=== PATIENT | male | born 1995 | race Caucasian/White ===

== ENCOUNTER 2017-05-27 18:14 | Emergency (ER) | payer OTHER ==
[~2017-05-27] VITALS: Ht 170.2 cm; Wt 80.0 kg
[2017-05-27] MEDS ORDERED: ALBU17IN INH (18:26)
[2017-05-27] MEDS ORDERED: HYDR50TA70 PO (21:49)
[2017-05-27 22:01] VITALS: BP 128/79
== END 2017-05-27 22:03 | disposition home or self-care (01) ==
LOC: M ED 18:14
DX: F41.9 Anxiety disorder, unspecified (principal); F17.210 Nicotine dependence, cigarettes, uncomplicated

== ENCOUNTER 2017-11-09 23:50 | Emergency (ER) | payer OTHER ==
[2017-11-10] MEDS: IBUPROFEN 600 MG TAB PO (00:55)
[2017-11-10] MEDS: METHOCARBAMOL 500 MG TAB PO (00:55)
== END 2017-11-10 01:44 | disposition home or self-care (01) ==
LOC: M ED 23:50
DX: M54.41 Lumbago with sciatica, right side (principal); M54.42 Lumbago with sciatica, left side; G89.29 Other chronic pain; J45.909 Unspecified asthma, uncomplicated; F17.210 Nicotine dependence, cigarettes, uncomplicated; Z79.899 Other long term (current) drug therapy
CPT/HCPCS: 99283

== ENCOUNTER 2018-01-07 16:55 | Emergency (ER) | payer OTHER ==
[2018-01-07] MEDS: LIDOCAINE 2% MDV 20 ML VIAL SC (18:00)
[2018-01-07] MEDS: ONDANSETRON 4 MG ORAL DISINTEGRATING TAB (S0181) PO (18:42)
== END 2018-01-07 19:09 | disposition home or self-care (01) ==
LOC: M ED 16:55
DX: S69.91XA Unspecified injury of right wrist, hand and finger(s), initial encounter (principal); W20.8XXA Other cause of strike by thrown, projected or falling object, initial encounter; Y92.59 Other trade areas as the place of occurrence of the external cause; Y99.0 Civilian activity done for income or pay; F17.210 Nicotine dependence, cigarettes, uncomplicated; Z79.899 Other long term (current) drug therapy
CPT/HCPCS: 73140

== ENCOUNTER 2018-04-23 09:54 | Emergency (ER) | payer OTHER ==
[2018-04-23 10:31] LABS: BASO # 0.1 10^3/uL (0.0-0.2); BASO % 0.7 % (0.0-1.0); EOS # 0.6 10^3/uL (0.0-0.50); EOS % 5.2 % (0.0-3.0); HEMATOCRIT 49.6 % (42.0-52.0); HEMOGLOBIN 17.1 g/dl (13.5-17.5); IMMATURE GRANULOCYTE % 0.8 % (0-3.0); LYMPH # 3.7 10^3/uL (1.5-6.5); LYMPH % 30.7 % (24.0-44.0); MEAN CORPUSCULAR HEMOGLOBIN 31.1 pg (27.0-33.0); MEAN CORPUSCULAR HGB CONC 34.5 g/dl (32.0-36.5); MEAN CORPUSCULAR VOLUME 90.3 fl (80.0-96.0); MONO # 0.9 10^3/uL (0.0-0.8); MONO % 7.8 % (0.0-5.0); NEUTROPHILS # 6.6 10^3/uL (1.8-7.7); NEUTROPHILS % 54.8 % (36.0-66.0); PLATELET COUNT, AUTOMATED 202 10^3/uL (150-450); RED BLOOD COUNT 5.49 10^6/uL (4.30-6.10); WHITE BLOOD COUNT 12.1 10^3/uL (4.0-10.0)
[2018-04-23] MEDS: ONDANSETRON 4MG/2ML VIAL (J2405) IV (10:45)
[2018-04-23] MEDS: NS 1,000 ML IV (10:45)
[2018-04-23] MEDS: ASPIRIN 81 MG CHEW TABLET PO (10:45)
[2018-04-23 10:46] LABS: INR 0.87; PROTHROMBIN TIME 11.9 SECONDS (12.4-14.5)
[2018-04-23 10:47] LABS: PARTIAL THROMBOPLASTIN TIME 26.5 SECONDS (26.8-37.9)
[2018-04-23 10:49] LABS: D-DIMER QUANT 413.5 ng/ml (<500)
[2018-04-23 11:03] LABS: ALBUMIN 3.9 GM/DL (3.2-5.2); ALKALINE PHOSPHATASE 84 U/L (45-117); ALT/SGPT 21 U/L (12-78); ANION GAP 5 MEQ/L (8-16); AST/SGOT 20 U/L (7-37); BILIRUBIN,DIRECT < 0.1 MG/DL (0.0-0.2); BILIRUBIN,TOTAL 0.3 MG/DL (0.2-1.0); BLOOD UREA NITROGEN 12 MG/DL (7-18); CALCIUM LEVEL 8.8 MG/DL (8.5-10.1); CARBON DIOXIDE LEVEL 29 MEQ/L (21-32); CHLORIDE LEVEL 104 MEQ/L (98-107); CPK CREATINE PHOSPHOKINASE 97 U/L (39-308); FREE T4 0.97 NG/DL (0.76-1.46); GLOMERULAR FILTRATION RATE > 60.0 (>60); GLUCOSE, FASTING 80 MG/DL (70-100); LIPASE 98 U/L (73-393); POTASSIUM SERUM 4.1 MEQ/L (3.5-5.1); SODIUM LEVEL 138 MEQ/L (136-145); TOTAL PROTEIN 7.8 GM/DL (6.4-8.2); TROPONIN I < 0.02 NG/ML (< 0.10)
[2018-04-23 11:08] LABS: CK-MB VALUE MASS < 1.0 NG/ML (<3.6); MB/CK RELATIVE INDEX 1.03 (< OR =4)
[2018-04-23] MEDS ORDERED: ACETAMINOPHEN 325 MG TAB As Ordered (11:14)
[2018-04-23] MEDS: ACETAMINOPHEN 325 MG TAB PO (11:23)
[2018-04-23] MEDS ORDERED: ISOVUE-370 76% 100ML VIAL (Q9967) As Ordered (12:14)
[2018-04-23 15:24] LABS: CK-MB VALUE MASS < 1.0 NG/ML (<3.6); CPK CREATINE PHOSPHOKINASE 80 U/L (39-308); MB/CK RELATIVE INDEX 1.25 (< OR =4); TROPONIN I < 0.02 NG/ML (< 0.10)
== END 2018-04-23 16:04 | disposition home or self-care (01) ==
LOC: M ED 09:54
DX: R07.9 Chest pain, unspecified (principal); R10.9 Unspecified abdominal pain; R94.31 Abnormal electrocardiogram [ECG] [EKG]; I10 Essential (primary) hypertension; F33.9 Major depressive disorder, recurrent, unspecified; F41.9 Anxiety disorder, unspecified; F17.200 Nicotine dependence, unspecified, uncomplicated; Z82.49 Family history of ischemic heart disease and other diseases of the circulatory system; Z79.899 Other long term (current) drug therapy
CPT/HCPCS: J2405

== ENCOUNTER 2018-08-02 14:34 | Emergency (ER) | payer OTHER | END 2018-08-02 19:55 | disposition home or self-care (01) | LOC: M ED 14:34 | DX: S62.346A Nondisplaced fracture of base of fifth metacarpal bone, right hand, initial encounter for closed fracture (principal); X58.XXXA Exposure to other specified factors, initial encounter; Y92.89 Other specified places as the place of occurrence of the external cause; I10 Essential (primary) hypertension; Z79.899 Other long term (current) drug therapy | CPT/HCPCS: 73140 ==